=== PATIENT | female | born 1980 | race Caucasian/White ===

== ENCOUNTER 2018-12-30 05:03 | Emergency (ER) | payer OTHER ==
[~2018-12-30] VITALS: Ht 172.7 cm; Wt 45.5 kg
--- NOTE | 2018-12-30 06:03 | NUR ---
PATIENT STATES THAT SHE BOUGHT A VAN IN [place], ITS A 2012 [employer] VAN, SHE PLANS TO TRY OUT THE VAN LIFE. 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 sHE HAS A BROTHER SWATHI GUILLEN THAT LIVES IN [place] BUT DOES NOT KNOW HIS TELEPHONE INFO. PATIENT ALSO STATES THAT SHE HAS A SISTER IN [facility] THAT LIVES IN [place]. SHE HAS PARENTS BUT STATES, " THEY CAN GO TO [facility]". PATIENT HAS A DOG THAT IS CURRENTLY IN SHOW LOW WITH HER FATHERS SISTER DAPHNE GUILLEN BUT HAS NO CONTACT INFO. PATIENT STATES SHE FELL ASLEEP AT THE WHEEL WHEN DRIVING BUT WAS FOUND BY CATHERINE BRYANT DANCING ON THE FREEWAY IN THE 55 MPH ZONE ON [place]ITE LINES. PATIENT DOES STATE SHE TAKES DEPRESSION MEDICATION, CITALOPRAM 20MG EVERY MORNING AND THAT SHE TOOK IT THIS MORNING. PATIENT DENIES SI & ALCOHOL PATIENT STATES HER ADDRESS PRIOR TO VAN LIFE WAS [address] [place] [address], , [place] [address]
[2018-12-30 06:55] LABS: URINE HCG NEGATIVE (NEG)
[2018-12-30] MEDS ORDERED: LORazepam 1 MG tablet PO ONE ×2 (06:55→16:00)
[2018-12-30] MEDS ORDERED: OLANZapine 2.5MG tablet PO ONE (06:55)
[2018-12-30] MEDS ORDERED: OLANZapine 2.5MG tablet PO SCH (06:55)
--- NOTE | 2018-12-30 07:01 | NUR ---
PT AGITATED COMING BEHIND RN STATION AND COMING FACE TO FACE WITH RN. PT GOING THROUGH CUPBOARDS AND TAKING EYEWASH OUT OF EYEWASH STATION. PT RUBBING ALCOHOL VENEER STOCK LAYER ON HER GUMS. ITEMS TAKEN AWAY.
[2018-12-30 07:08] LABS: URINE AMPHETAMINE SCREEN NEGATIVE (Neg); URINE BARBITUATE SCREEN NEGATIVE (Neg); URINE BENZODIAZEPINES SCREEN NEGATIVE (Neg); URINE CANNABINOID SCREEN POSITIVE (Neg); URINE COCAINE SCREEN NEGATIVE (Neg); URINE METHADONE SCREEN NEGATIVE (Neg); URINE OPIATE SCREEN NEGATIVE (Neg); URINE PHENCYCLIDINE SCREEN NEGATIVE (Neg)
--- NOTE | 2018-12-30 07:37 | NUR ---
placed elopment band on patient. she is rubbing her gums with hand scrapper.
--- NOTE | 2018-12-30 07:58 | NUR ---
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
--- NOTE | 2018-12-30 09:01 | NUR ---
LAB AT BEDSIDE
--- NOTE | 2018-12-30 09:02 | NUR ---
Danni drake in [facility] - 12/30/18 at 1414 by MARKUS WHIT NAIR CALLED ON PT PACKET
[2018-12-30 09:13] LABS: BASOPHILS # (AUTO) 0.1 X10'3 (0-0.2); EOSINOPHILS # (AUTO) 0.1 X10'3 (0-0.9); LYMPHOCYTES # (AUTO) 1.4 X10'3 (1.1-4.8); MEAN PLATELET VOLUME 7.5 FL (7.4-10.4); MONOCYTES # (AUTO) 0.4 X10'3 (0-0.9); WHITE BLOOD COUNT 4.5 X10'3 (4.5-11.0)
[2018-12-30 09:15] LABS: BASOPHILS % (AUTO) 1.9 % (0-1); EOSINOPHILS % (AUTO) 2.7 % (0-6); HEMATOCRIT 38.5 % (35.0-45.0); HEMOGLOBIN 13.3 g/dl (12.0-16.0); LYMPHOCYTES % (AUTO) 30.1 % (21-51); MEAN CORPUSCULAR HEMOGLOBIN 32.3 PG (27.0-31.0); MEAN CORPUSCULAR HGB CONC 34.6 g/dL (33.0-36.5); MEAN CORPUSCULAR VOLUME 93.5 FL (78-98); MONOCYTES % (AUTO) 9.6 % (2-12); NEUTROPHILS # (AUTO) 2.5 X10'3 (1.8-7.7); NEUTROPHILS % (AUTO) 55.7 % (42-75); PLATELET COUNT 229 X10'3 (140-440); RED BLOOD COUNT 4.12 X10'6 (4.20-5.60); RED CELL DISTRIBUTION WIDTH 13.7 % (11.5-14.5)
[2018-12-30 09:33] LABS: ACETAMINOPHEN < 2.0 UG/ML (10-30); ALANINE AMINOTRANSFERASE 24 U/L (12-78); ALBUMIN 3.5 G/DL (3.4-5.0); ALBUMIN/GLOBULIN RATIO 1.4 (1.1-1.5); ALKALINE PHOSPHATASE 120 IU/L (46-116); ANION GAP 9 (8-16); ASPARTATE AMINO TRANSFERASE 17 U/L (10-37); BILIRUBIN,TOTAL 0.3 MG/DL (0.1-1.0); BLOOD UREA NITROGEN 14 MG/DL (7-18); BUN/CREATININE RATIO 20.6 (6.6-38.0); CALCIUM 8.1 MG/DL (8.5-10.1); CHLORIDE 110 MMOL/L (99-107); CREATININE 0.68 MG/DL (0.40-0.90); GLUCOSE 95 MG/DL (70-104); POTASSIUM 3.6 MMOL/L (3.5-5.1); SODIUM 146 MMOL/L (135-145); TOTAL CARBON DIOXIDE 27.2 MMOL/L (24-32); eGFR > 90 ML/MIN
[2018-12-30 09:38] LABS: ETHANOL < 0.010 GM/DL (0.0-0.010)
[2018-12-30 09:59] LABS: MAGNESIUM 2.5 MG/DL (1.5-2.4)
--- NOTE | 2018-12-30 10:07 | NUR ---
Pt asleep in no apparent distress on left side. Respirations are even and unlabored
--- NOTE | 2018-12-30 12:05 | NUR ---
Pt asleep in no apparent distress on back side. Lightly snoring. Respirations are even and unlabored
--- NOTE | 2018-12-30 13:23 | NUR ---
faxed packet to [facility].
--- NOTE | 2018-12-30 14:08 | NUR ---
pt elopement band placed. Pt asleep in bed in no apparent distress
--- NOTE | 2018-12-30 14:14 | NUR ---
Pt awake and eating
--- NOTE | 2018-12-30 14:48 | NUR ---
[facility] statement request clerk at bedside
--- NOTE | 2018-12-30 15:49 | NUR ---
Pt brushing teeth. "I am a mystic."
[2018-12-30] MEDS ORDERED: diphenhydrAMINE 25mg capsule PO ONE (16:00)
[2018-12-30] MEDS ORDERED: haloperidol 5mg tablet PO ONE (16:00)
[2018-12-30] MEDS ORDERED: LORazepam 2 mg/ml vial IM ONE (16:00)
--- NOTE | 2018-12-30 16:01 | NUR ---
Pt becoming agitated and threatening staff. Face to face with nurse thrusting her body and head toward RN. Attempted to verbally de-escalate patient. Security called. Pt continues to scream at full volume and attempt to clinic charge nurse. Dr Huff gave orders for B52. Attempted to give oral medications. Client refused and when med cup was offered client attempted to head butt RN again. Security escorted client to her bed and attempted to verbally de-escalate pt.
--- NOTE | 2018-12-30 16:01 | NUR ---
IM Ativan was given at 1601 12/30/18 but unable to record administration at that time.
--- NOTE | 2018-12-30 16:03 | NUR ---
Pt yelling that she is leaving in two minutes. She says the DR took her off the hold and is demanding we get her things and let her out.
[2018-12-30] MEDS ORDERED: diphenhydrAMINE 50 mg/ml inj ONE (16:09)
[2018-12-30] MEDS ORDERED: haloperidol lactate 5mg/ml inj ONE (16:10)
--- NOTE | 2018-12-30 16:18 | NUR ---
Pt screaming and throwing her arms out towards staff. Pt screams "I am Marcus the goddess."
--- NOTE | 2018-12-30 16:21 | NUR ---
Client given IM medications. She continues to scream at full volume and verbal assault staff. Client body language is threatening. She continues to thrust herself towards staff. Continue to attempt to verbally de-escalate her
--- NOTE | 2018-12-30 16:32 | NUR ---
Pt vitals taken all WNL. Or5al medications wasted
--- NOTE | 2018-12-30 17:04 | NUR ---
Pt asleep on her back in no apparent distress. Respirations are even and unlabored.
--- NOTE | 2018-12-30 17:34 | NUR ---
Pt on monitor. BP hanging around 87/53, respirations 16, pulse 62 and 02 100%. Pt sitting up. Pt drank two cups of warm water and two cups of coffee. Will continue to monitor. Dr Huff notified and sates not too concerned considering Pt size. Pt very petite.
--- NOTE | 2018-12-30 18:38 | NUR ---
pt's bp 80/48, pt is up and eating dinner, denies sympoms. dr ruffin notified.
--- NOTE | 2018-12-30 20:48 | NUR ---
pt continues to sleep. bp is running around 90/50, pt asymptomatic.
[2018-12-30] MEDS ORDERED: CITA20TA2 PO (22:29)
--- NOTE | 2018-12-31 00:32 | NUR ---
pt is sleeping, rr unlabored, will continue to monitor
--- NOTE | 2018-12-31 01:19 | NUR ---
pt continues to sleep, wakes occasionally and smiles at staff, then back to sleep.
--- NOTE | 2018-12-31 02:11 | NUR ---
Pt asleep on her back in no apparent distress. Respirations are even and unlabored.
--- NOTE | 2018-12-31 04:11 | NUR ---
pt woke up and requested a cheeseburger. pt given milk, liz crackers, string cheese. pt very polite and friendly.
--- NOTE | 2018-12-31 04:18 | NUR ---
pt appears to be sleeping, no distress noted.
--- NOTE | 2018-12-31 06:30 | NUR ---
Patient sleeping supine. No distress observed. Continue to monitor.
--- NOTE | 2018-12-31 08:05 | NUR ---
Patient sitting up and eating breakfast. No distress observed. Continue to monitor.
[2018-12-31] MEDS: citalopram 20mg tablet PO SCH (08:23)
[2018-12-31] MEDS: NICOTINE POLACRILEX 2 MG LOZENGE BC PRN ×3 (08:46→15:52)
--- NOTE | 2018-12-31 13:31 | NUR ---
breaking primary RN pt is in sitting up in bed finger combing hair, no s/s of agitation observed
--- NOTE | 2018-12-31 13:53 | NUR ---
requested nicotine losenge and coffee was given coffee and medication
--- NOTE | 2018-12-31 14:48 | NUR ---
Renea, director financial services speaking with patient. Patient wants to go home and TEJINDER Du advised patient she is on a legal hold and will be re-evaluated in 48 hours if a [facility] hospital has not admitted her by then. Patient upset and wants to speak to someone. TEJINDER Du had Renea speak to patient. Patient calm. Continue to monitor.
--- NOTE | 2018-12-31 15:55 | NUR ---
Patient reading a magazine. No distress observed. Continue to monitor.
--- NOTE | 2018-12-31 17:24 | NUR ---
Patient ambulatory to BR, steady gait. Continue to monitor.
--- NOTE | 2018-12-31 17:30 | NUR ---
Pt stated that she wanted to speak to someone about being released. Sent Yazan aguilera to speak to pt. Addendum: 12/31/18 at 2005 by ZANDER [id number]
[2018-12-31 17:35] VITALS: BP 126/82
[2018-12-31] MEDS ORDERED: nicotine 21mg patch - 24 hr TD ONE (18:40)
--- NOTE | 2018-12-31 18:48 | NUR ---
Pharmacy out of nicotine lozenges. Order switched to nicotine patch. Pt states she has lozenges in her purse. Will send tech out to retrieve lozenges to send to pharmacy for labeling.
--- NOTE | 2018-12-31 19:45 | NUR ---
Tech retrieved pt belongings from locker to look for nicotine lozenges to send to pharmacy. Lozenges not among belongings. Pt stated that they are in her van. Belongings locked back up in locker.
--- NOTE | 2018-12-31 20:06 | NUR ---
Pt requested to speak to a psychiatrist about being released tonight. Redirected and educated pt about overflow policies.
--- NOTE | 2018-12-31 21:08 | NUR ---
Pt resting in bed, respirations normal, no s/s of distress.
--- NOTE | 2018-12-31 21:32 | NUR ---
Pt has been accepted to [facility] and will be transported tomorrow morning at 10am. UA results to be faxed tonight.
[2018-12-31 21:44] LABS: CLARITY,URINE CLEAR (Clear); COLOR,URINE Brown (Yellow); GLUCOSE, URINE NEGATIVE (Neg); KETONES,URINE NEGATIVE (Neg); LEUKOCYTE ESTERASE ,URINE NEGATIVE (Neg); NITRITES, URINE NEGATIVE (Neg); OCCULT BLOOD,URINE NEGATIVE (Neg); PH,URINE 5.5 (4.8-8.0); PROTEIN,URINE NEGATIVE (Neg); UA COLLECTION TYPE CLN CATCH MIDSTREAM; UROBILINOGEN,URINE 0.2 E.U/dL (0.2-1.0)
[2018-12-31 21:50] LABS: BACTERIA,URINE FEW /HPF (Neg); MUCUS STRANDS NONE SEEN /LPF (Neg); RBC,URINE NONE SEEN /HPF (0-2); SQUAMOUS EPITHELIAL CELL,UR FEW /LPF (FEW); WBC,URINE 0-4 /HPF (0-4)
--- NOTE | 2018-12-31 23:58 | NUR ---
Pt sitting up in bed muttering and garbling and waking other pts. Retrieved another water pitcher for pt. Addendum: 01/01/19 at 0142 by ZANDER wrong pt.
[2019-01-01] MEDS ORDERED: LORazepam 1 MG tablet PO ONE (01:15)
--- NOTE | 2019-01-01 06:49 | NUR ---
Pt is resting supine in bed peacefully at this time with no distress observed. Will continue to monitor.
[2019-01-01] MEDS: citalopram 20mg tablet PO SCH (08:19)
--- NOTE | 2019-01-01 08:35 | NUR ---
GIVING PRIMARY NURSE A BREAK, PT. IS IN BED EATING.
[2019-01-01] MEDS ORDERED: LORazepam 2 mg/ml vial IV ONE (16:00)
== END 2019-01-01 10:01 ==
LOC: ER 05:05
DX: F23 Brief psychotic disorder (principal); I95.9 Hypotension, unspecified; F32.9 Major depressive disorder, single episode, unspecified; F12.90 Cannabis use, unspecified, uncomplicated; F17.200 Nicotine dependence, unspecified, uncomplicated; Z88.1 Allergy status to other antibiotic agents; Z88.0 Allergy status to penicillin; Z79.899 Other long term (current) drug therapy; Z60.2 Problems related to living alone
CPT/HCPCS: 36415; 70450; 80053; 80305; 80320; 80329; 81001; 81025; 83735; 84443; 85025; 85651; 99291; J1200; J1630; Q0163